=== PATIENT | female | born 1990 | race Caucasian/White ===

== ENCOUNTER 2018-02-24 22:28 | Inpatient (IN) | payer MEDICAID, OTHER ==
[2018-02-25] MEDS ORDERED: LACTATED RINGER'S 1,000 ML IV (00:56)
[2018-02-25] MEDS ORDERED: LIDOCAINE 1% (MPF) 30 ML INJ INJ (01:00)
[2018-02-25] MEDS ORDERED: OXYTOCIN 30 UNITS/LR 500 ML IV ×3 (01:00)
[2018-02-25] MEDS ORDERED: BUTORPHANOL 2 MG INJ IV (01:00)
[2018-02-25] MEDS ORDERED: METHYLERGONOVINE 0.2 MG INJ IM (01:00)
[2018-02-25] MEDS ORDERED: MISOPROSTOL 200 MCG TAB PR (01:00)
[2018-02-25] MEDS ORDERED: CARBOPROST 250 MCG INJ IM (01:00)
[2018-02-25] MEDS ORDERED: IBUPROFEN 600 MG TAB PO (01:00)
[2018-02-25 01:12] LABS: ADD MAN DIFF? NO; BASOPHILS % 0.2 % (0.0-2.0); EOSINOPHILS # 0.1 10^3/ul (0.0-0.5); EOSINOPHILS % 0.6 % (0.0-7.0); LYMPHOCYTES # 2.1 10^3/ul (0.8-2.9); LYMPHOCYTES % 14.8 % (15.0-51.0); MEAN CORPUSCULAR HEMOGLOBIN 28.2 pg (29.0-33.0); MEAN CORPUSCULAR HGB CONC 33.3 g/dl (32.0-37.0); MEAN CORPUSCULAR VOLUME 84.5 fl (82.0-101.0); MONOCYTES % 6.8 % (0.0-11.0); NEUTROPHIL # 10.8 10^3/ul (1.6-7.5); NEUTROPHILS % 77.1 % (39.0-77.0); PLATELET COUNT 234 10^3/UL (140-415); RED BLOOD COUNT 4.26 10^6/ul (4.20-5.40); RED CELL DISTRIBUTION WIDTH 15.6 % (11.5-14.5)
[2018-02-25 01:27] LABS: ADD UMIC NO; UR ASCORBIC ACID NEGATIVE (NEGATIVE); UR BILIRUBIN (Dip) NEGATIVE (NEGATIVE); UR BLOOD (Dip) NEGATIVE (NEGATIVE); UR CLARITY CLEAR (CLEAR); UR COLOR YELLOW (YELLOW); UR GLUCOSE (Dip) NEGATIVE (NEGATIVE); UR KETONES (Dip) NEGATIVE (NEGATIVE); UR LEUKOCYTE ESTERASE (Dip) NEGATIVE Leu/ul (NEGATIVE); UR NITRITE (Dip) NEGATIVE (NEGATIVE); UR SPECIFIC GRAVITY (Dip) 1.015 (1.003-1.030); UR TOTAL PROTEIN (Dip) NEGATIVE (NEGATIVE); UR UROBILINOGEN (Dip) NEGATIVE (NEGATIVE)
[2018-02-25 01:33] LABS: INR 0.84; PROTIME 11.6 Sec (11.9-14.9); PT RATIO 0.9
[2018-02-25 01:37] LABS: ALANINE AMINOTRANSFERASE 17 IU/L (13-69); ALBUMIN 3.2 g/dl (3.3-4.9); ALBUMIN/GLOBULIN RATIO 0.91; ALKALINE PHOSPHATASE 175 IU/L (42-121); ANION GAP 12 (8-16); ASPARTATE AMINO TRANSFERASE 24 IU/L (15-46); BILIRUBIN,INDIRECT 0.3 mg/dl (0-1.1); BILIRUBIN,TOTAL 0.3 mg/dl (0.2-1.3); BLOOD UREA NITROGEN 14 mg/dl (7-20); CALCIUM 9.4 mg/dl (8.4-10.2); CARBON DIOXIDE 22 mmol/L (21-31); CHLORIDE 107 mmol/L (97-110); CREATININE 0.64 mg/dl (0.44-1.00); GLUCOSE 77 mg/dl (70-220); SODIUM 137 mmol/L (135-144); TOTAL PROTEIN 6.7 g/dl (6.1-8.1); URIC ACID 5.3 mg/dl (3.1-7.9)
[2018-02-25 02:07] LABS: HEPATITIS B SURFACE ANTIGEN NEGATIVE (NEGATIVE)
[2018-02-25] MEDS: LACTATED RINGER'S 1,000 ML IV* ×6 (03:00→21:11)
[2018-02-25] MEDS: OXYTOCIN 30 UNITS/LR 500 ML IV (06:28)
[2018-02-25] MEDS ORDERED: AMPICILLIN 2 GM/NS (PMX) 100 ML (07:56)
[2018-02-25] MEDS: AMPICILLIN 2 GM/NS (PMX) 100 ML IVPB (08:05)
[2018-02-25] MEDS: AMPICILLIN 1 GM/NS (PMX) 50 ML IVPB ×3 (12:01→20:24)
[2018-02-25 12:02] LABS: RUPTURE FETAL MEMBRANES POSITIVE (NEGATIVE)
[2018-02-25] MEDS ORDERED: MAGNESIUM SULFATE 4 GM/100 ML 100 ML (12:41)
[2018-02-25] MEDS ORDERED: MAGNESIUM SULFATE 4 GM/100 ML 100 ML IVPB (13:00)
[2018-02-25] MEDS ORDERED: CA GLUCONATE (GM) 10% 10ML INJ IV (13:00)
[2018-02-25] MEDS: MAGNESIUM SULFATE 4 GM/100 ML 100 ML IVPB (13:00)
[2018-02-25] MEDS ORDERED: MAGNESIUM SULFATE 2 GM/50 ML 50 ML IVPB (13:00)
[2018-02-25] MEDS: MAGNESIUM SULFATE 20 GM/500 ML 500 ML IV ×2 (13:32→23:05)
[2018-02-25 16:28] LABS: RAPID PLASMA REAGIN NONREACTIVE (NR)
[2018-02-25] MEDS ORDERED: FENTAnyl 2MCG/ML-ROPIV 0.2% 100 ML (17:46)
[2018-02-25 18:03] LABS: MAGNESIUM 4.7 mg/dl (1.7-2.5)
[2018-02-25] MEDS ORDERED: FENTAnyl 2MCG/ML-ROPIV 0.2% 100 ML BAG EPI (18:30)
[2018-02-25] MEDS ORDERED: NALOXONE (0.4 MG/ML) INJ IV (18:30)
[2018-02-25] MEDS: ONDANSETRON 4 MG INJ IV (23:23)
[2018-02-26] MEDS ORDERED: OXYTOCIN 30 UNITS/LR 500 ML IV
[2018-02-26] MEDS ORDERED: MISOPROSTOL 200 MCG TAB PR
[2018-02-26] MEDS ORDERED: CARBOPROST 250 MCG INJ IM
[2018-02-26] MEDS ORDERED: METHYLERGONOVINE 0.2 MG INJ IM
[2018-02-26] MEDS ORDERED: HYDROCODONE/APAP (5/325) TAB PO
[2018-02-26] MEDS: OXYTOCIN 30 UNITS/LR 500 ML IV ×2 (00:43→01:33)
[2018-02-26 01:19] LABS: MAGNESIUM 5.6 mg/dl (1.7-2.5)
[2018-02-26] MEDS: IBUPROFEN 600 MG TAB PO ×4 (01:53→17:52)
[2018-02-26] MEDS: MAGNESIUM SULFATE 20 GM/500 ML 500 ML IV (03:00)
[2018-02-26] MEDS: LANOLIN 7 GM TUBE TOP (06:29)
[2018-02-26] MEDS: LACTATED RINGER'S 1,000 ML IV* ×3 (07:50→23:50)
[2018-02-26 08:19] LABS: MAGNESIUM 6.1 mg/dl (1.7-2.5)
[2018-02-27] MEDS: IBUPROFEN 600 MG TAB PO ×4 (00:22→17:45)
[2018-02-27] MEDS: LACTATED RINGER'S 1,000 ML IV* ×2 (07:50→15:50)
[2018-02-27 08:21] LABS: ADD MAN DIFF? NO
[2018-02-27 08:26] LABS: BASOPHILS % 0.3 % (0.0-2.0); EOSINOPHILS # 0.2 10^3/ul (0.0-0.5); EOSINOPHILS % 1.3 % (0.0-7.0); HEMATOCRIT 31.4 % (37.0-47.0); HEMOGLOBIN 10.2 g/dl (12.0-16.0); LYMPHOCYTES # 2.5 10^3/ul (0.8-2.9); LYMPHOCYTES % 15.7 % (15.0-51.0); MEAN CORPUSCULAR HEMOGLOBIN 28.3 pg (29.0-33.0); MEAN CORPUSCULAR HGB CONC 32.5 g/dl (32.0-37.0); MEAN CORPUSCULAR VOLUME 87.2 fl (82.0-101.0); MEAN PLATELET VOLUME 11.1 fl (7.4-10.4); MONOCYTE # 1.2 10^3/ul (0.3-0.9); MONOCYTES % 7.6 % (0.0-11.0); NEUTROPHIL # 11.7 10^3/ul (1.6-7.5); NEUTROPHILS % 74.5 % (39.0-77.0); PLATELET COUNT 207 10^3/UL (140-415)
[2018-02-27 08:26] LABS: WHITE BLOOD COUNT 15.7 10^3/ul (4.8-10.8)
[2018-02-27] MEDS: DIPHTH/TET/ACEL PERTUSS (ADULT) 0.5 ML VIAL IM* (09:18)
== END 2018-02-27 18:17 | disposition home or self-care (01) | DRG 775 ==
LOC: OBT 22:28 → PP1 02-26 02:50 → L-D 22:29
PROC: 10E0XZZ Delivery of Products of Conception, External Approach (ICD-10-PCS; principal; 2018-02-25)
DX: O13.4 Gestational [pregnancy-induced] hypertension without significant proteinuria, complicating childbirth (principal); Z37.0 Single live birth; Z3A.39 39 weeks gestation of pregnancy
CPT/HCPCS: 62319; 76815; 80053; 81003; 83735; 84112; 84560; 85025; 85610; 85730; 86592; 86850; 86900; 86901; 87340

== ENCOUNTER 2018-06-02 12:34 | Emergency (ER) | payer OTHER ==
[2018-06-02 13:16] LABS: ADD MAN DIFF? NO
[2018-06-02] MEDS: ONDANSETRON 4 MG INJ IV (13:18)
[2018-06-02] MEDS: SOD CHLORIDE 0.9% 1,000 ML IV (13:18)
[2018-06-02 13:19] LABS: WHITE BLOOD COUNT 9.2 10^3/ul (4.8-10.8)
[2018-06-02 13:19] LABS: BASOPHILS % 0.2 % (0.0-2.0); EOSINOPHILS # 0.1 10^3/ul (0.0-0.5); EOSINOPHILS % 0.8 % (0.0-7.0); HEMATOCRIT 42.6 % (37.0-47.0); HEMOGLOBIN 13.9 g/dl (12.0-16.0); LYMPHOCYTES # 2.4 10^3/ul (0.8-2.9); LYMPHOCYTES % 26.4 % (15.0-51.0); MEAN CORPUSCULAR HEMOGLOBIN 27.7 pg (29.0-33.0); MEAN CORPUSCULAR HGB CONC 32.6 g/dl (32.0-37.0); MEAN PLATELET VOLUME 9.7 fl (7.4-10.4); MONOCYTE # 0.7 10^3/ul (0.3-0.9); MONOCYTES % 7.5 % (0.0-11.0); NEUTROPHILS % 64.9 % (39.0-77.0); PLATELET COUNT 373 10^3/UL (140-415); RED BLOOD COUNT 5.01 10^6/ul (4.20-5.40); RED CELL DISTRIBUTION WIDTH 12.7 % (11.5-14.5)
[2018-06-02 13:37] LABS: ALANINE AMINOTRANSFERASE 30 IU/L (13-69); ALBUMIN 4.5 g/dl (3.3-4.9); ALBUMIN/GLOBULIN RATIO 1.18; ALKALINE PHOSPHATASE 108 IU/L (42-121); ASPARTATE AMINO TRANSFERASE 27 IU/L (15-46); BILIRUBIN,INDIRECT 0.4 mg/dl (0-1.1); BILIRUBIN,TOTAL 0.4 mg/dl (0.2-1.3); BLOOD UREA NITROGEN 8 mg/dl (7-20); CALCIUM 9.6 mg/dl (8.4-10.2); CARBON DIOXIDE 26 mmol/L (21-31); CREATININE 0.45 mg/dl (0.44-1.00); Estimated GFR > 60 mL/min (>60); GLUCOSE 90 mg/dl (70-220); LIPASE 114 U/L (23-300); POTASSIUM 3.7 mmol/L (3.5-5.1); SODIUM 140 mmol/L (135-144); TOTAL PROTEIN 8.3 g/dl (6.1-8.1)
[2018-06-02 13:42] LABS: ADD UMIC YES; UR ASCORBIC ACID NEGATIVE (NEGATIVE); UR BACTERIA FEW /HPF (NONE SEEN); UR BILIRUBIN (Dip) NEGATIVE (NEGATIVE); UR BLOOD (Dip) NEGATIVE (NEGATIVE); UR CLARITY SLIGHTLY CLOUDY (CLEAR); UR COLOR YELLOW (YELLOW); UR GLUCOSE (Dip) NEGATIVE (NEGATIVE); UR KETONES (Dip) NEGATIVE (NEGATIVE); UR LEUKOCYTE ESTERASE (Dip) 1+ Leu/ul (NEGATIVE); UR MUCUS FEW /HPF (NONE SEEN); UR NITRITE (Dip) NEGATIVE (NEGATIVE); UR RBC 3 /HPF (0-5); UR SPECIFIC GRAVITY (Dip) 1.014 (1.003-1.030); UR SQUAMOUS EPITHELIAL CELL FEW /HPF (FEW); UR TOTAL PROTEIN (Dip) NEGATIVE (NEGATIVE); UR UROBILINOGEN (Dip) NEGATIVE (NEGATIVE); UR WBC 4 /HPF (0-5)
[2018-06-02 13:49] LABS: TROPONIN-I < 0.012 ng/ml (0.000-0.120)
[2018-06-02 13:50] LABS: ANION GAP 11 (5-13); CHLORIDE 103 mmol/L (97-110)
== END 2018-06-02 14:36 | disposition home or self-care (01) ==
LOC: FTE 12:34
DX: R42 Dizziness and giddiness (principal)
CPT/HCPCS: 80053; 81001; 81025; 83690; 84484; 85025; 93005; 96361; 96374; 99284-25